=== PATIENT | female | born 1955 | race African-American/Black ===

== ENCOUNTER → 2016-08-14 | Outpatient (CLI) | payer OTHER ==
[~2016-08-14] MED LIST: ACETAMINOPHEN325 M1 PO; ACID CONTROL20 MG PO; ALLOPURINOL 10100 M1 PO; AMLODIPINE BESY10 MG PO; ANTACID325 MG PO; ANTIVERT25 MG PO; APAP500 PO; ASPIRIN325 PO; B-50 COMPLEX1 EACH PO; CARDIZEM CD180 MG PO; CELLCEPT 250 M250 M1 PO; CELLCEPT500 MG PO; CITRATE OF MAG296 ML PO; COLACE100 MG PO; COMBIVENT INH; FOLIC ACID1 MG PO; FUROSEMIDE 40 M40 M1 PO; LEVOXYL25 MCG; LISINOPRIL20 MG PO; LOPRESSOR 50 MG50 M1; METOPROLOL SUCC25 M1 PO; NAPROSYN500 MG PO; NEURONTIN 300300 M1 PO; PREDNISONE 1 MG1 M1 PO; PREDNISONE 10 M10 M1 PO; SIMBRINZA 1%-0.28 ML OP; TOPROL XL50 MG PO; TRAVATAN Z5 ML OP; VITAMIN D1000 UNI1 PO; XALATAN2.5 ML OPHTHALMIC; [UNRECOGNIZED DRUG - OTHER]
== END ==
LOC: RAD 16:29
DX: M47.896 Other spondylosis, lumbar region (principal); M79.89 Other specified soft tissue disorders

== ENCOUNTER → 2016-10-16 | Outpatient (CLI) | payer OTHER | LOC: MRI 10-15 09:27 | DX: M47.26 Other spondylosis with radiculopathy, lumbar region (principal); M48.06 Spinal stenosis, lumbar region ==

== ENCOUNTER 2016-12-02 20:57 | Emergency (ER) | payer OTHER ==
[~2016-12-02] VITALS: Ht 160 cm; Wt 158.8 kg
[2016-12-02] MEDS ORDERED: NORCO 5-325 TA1 EACH PO (22:44)
[2016-12-02] MEDS ORDERED: NAPROSYN500 MG PO (22:44)
== END 2016-12-02 23:26 | disposition home or self-care (01) ==
LOC: ER 20:57
DX: M54.42 Lumbago with sciatica, left side (principal); E66.01 Morbid (severe) obesity due to excess calories; I10 Essential (primary) hypertension; F17.210 Nicotine dependence, cigarettes, uncomplicated; Z87.09 Personal history of other diseases of the respiratory system; Z88.5 Allergy status to narcotic agent; Z91.018 Allergy to other foods; Z88.8 Allergy status to other drugs, medicaments and biological substances

== ENCOUNTER → 2017-01-02 | Outpatient (CLI) | payer OTHER ==
[~2017-01-02] MED LIST changes: +NORCO 5-325 TA1 EACH PO
== END ==
LOC: RAD 12:55
DX: M17.0 Bilateral primary osteoarthritis of knee (principal); M79.89 Other specified soft tissue disorders

== ENCOUNTER → 2017-03-04 | Outpatient (CLI) | payer OTHER | LOC: RAD 10:28 | DX: Z12.31 Encounter for screening mammogram for malignant neoplasm of breast (principal) ==

== ENCOUNTER 2017-04-24 17:08 | Inpatient (IN) | payer OTHER ==
[~2017-04-24] VITALS: Ht 160 cm; Wt 152.0 kg
--- NOTE | ~2017-04-24 | EKG ---
[place] [address] [facility] [place] [address] ELECTROCARDIOGRAM REPORT Name: MONOMEGANLUCIA BOLAÑOS Room #: [facility]..#: [id number] Admission: Attend Phys: Discharge: Date of : 59 Report #: [id number] THIS REPORT FOR: //name// [facility] ED Test Date: 2017-04-24 Test Time: 17:28:15 Pat Name: MEGAN VILLAREAL Department: Room: Gender: F Transitions Manager Rn: LORI : 1955 Requested By: Nayeli Saxena Order Number: [id number] MD: Ric Tomlin Measurements Intervals [place] Rate: 115 P: 67 MO: 144 QRS: 45 QRSD: 81 T: 64 QT: 334 QTc: 462 Interpretive Statements Sinus tachycardia Otherwise no significant abnormality Compared to ECG 12/24/2013 07:03:26 First degree AV block no longer present Electronically Signed On 04-24-2017 17:33:54 REGISTERED PHARMACY TECHNICIAN by Ric Tomlin [email or web address] <ELECTRONICALLY SIGNED> By: Ric Tomlin MD, [facility] 04/24/17 1733 1728 1728 Ric Tomlin MD, FAC /EPI
[2017-04-24 17:10] VITALS: BP 122/86
[2017-04-24 17:25] LABS: URINE BILIRUBIN NEGATIVE (Negative); URINE BLOOD 2+ (Negative); URINE CLARITY CLEAR; URINE COLOR YELLOW; URINE GLUCOSE-RANDOM* 3+ (Negative); URINE KETONES NEGATIVE (Negative); URINE LEUKOCYTES 1+ (Negative); URINE NITRITE POSITIVE (Negative); URINE PROTEIN (DIPSTICK) NEGATIVE (Negative); URINE SPECIFIC GRAVITY <= 1.005 (1.005-1.035); URINE UROBILINOGEN 0.2 E.U./dl (0.2-1.0)
[2017-04-24 17:40] LABS: CASTS None Seen /LPF (None Seen); SQUAMOUS 4-10 Moderate /LPF (0-3); URINE RBC 3-10 Few /HPF (0-2)
[2017-04-24 17:41] LABS: BACTERIA >30 Many /HPF (None Seen); CRYSTALS None Seen /LPF (None Seen)
[2017-04-24 17:54] LABS: BASOPHILS 0.5 % (0.0-2.0); HEMOGLOBIN 14.8 gm/dL (12.0-15.0); LYMPHOCYTES 15.4 % (24.0-44.0); MCHC 33.6 g/dL (28.0-37.0); MCV 98.2 fL (80.0-100.0); MONOCYTES 10.9 % (1.0-8.0); PLATELET COUNT 156 thou/uL (150-400); POLYS 72.2 % (36.0-66.0); RBC 4.48 mil/uL (4.20-5.00); RDW 15.1 % (10.5-14.5); WBC 8.4 thou/uL (4.0-11.0)
[2017-04-24 18:01] LABS: ANION GAP 11 mmol/L (7-16); BUN 13 mg/dL (7-18); CALCIUM 9.4 mg/dL (8.5-10.1); CHLORIDE 100 mmol/L (98-107); CO2 25 mmol/L (21-32); CREATININE 1.7 mg/dL (0.6-1.0); GLUCOSE 450 mg/dL (74-106); SODIUM 136 mmol/L (136-145)
[2017-04-24 18:11] LABS: ALBUMIN 3.4 g/dL (3.4-5.0); LIPASE 135 U/L (73-393); SGOT 40 U/L (15-37); SGPT 50 U/L (30-65); TOTAL BILIRUBIN 1.2 mg/dL (<0.1-1.0); TOTAL PROTEIN 7.1 g/dL (6.4-8.2); TROPONIN-I < 0.04 ng/mL (<0.06)
[2017-04-24] MEDS ORDERED: OXYBUTYNIN ER 55 M1 PO (19:33)
[2017-04-24] MEDS ORDERED: LISINOPRIL5 MG PO (19:33)
[2017-04-24] MEDS ORDERED: SYNTHROID50 MCG PO (19:34)
[2017-04-24] MEDS ORDERED: LASIX 40 MG TAB40 M2 PO (19:34)
[2017-04-24 21:07] VITALS: BP 159/81
[2017-04-24 21:40] VITALS: BP 134/88
[2017-04-25 04:28] VITALS: BP 141/96
[2017-04-25 06:04] LABS: ANION GAP 11 mmol/L (7-16); BUN 9 mg/dL (7-18); CALCIUM 8.4 mg/dL (8.5-10.1); CHLORIDE 106 mmol/L (98-107); CHOLESTEROL 182 mg/dL (<200); CO2 23 mmol/L (21-32); CREATININE 1.1 mg/dL (0.6-1.0); GLUCOSE 157 mg/dL (74-106); HDL CHOLESTEROL 54 mg/dL (>40); LDL CHOLESTEROL 91 mg/dL (<100); POTASSIUM 3.1 mmol/L (3.5-5.1); SODIUM 140 mmol/L (136-145); TC:HDL 3.4 Ratio (Not establshd); TRIGLYCERIDE 187 mg/dL (<150); VLDL 37 mg/dL (<40)
[2017-04-25 06:06] LABS: SERUM ASSESSMENT Clear
[2017-04-25 08:00] LABS: CALCIUM 8.3 mg/dL (8.5-10.1); CREATININE 1.2 mg/dL (0.6-1.0); MAGNESIUM 1.7 mg/dL (1.8-2.4); POTASSIUM 3.1 mmol/L (3.5-5.1)
[2017-04-25 08:53] VITALS: BP 133/75
[2017-04-25 15:59] VITALS: BP 145/80
[2017-04-25 20:41] VITALS: BP 114/96
[2017-04-26 05:23] VITALS: BP 127/73
[2017-04-26 05:41] LABS: ABSOLUTE NEUTROPHILS 4.8 thou/uL (1.4-8.2); BASOPHILS 0.8 % (0.0-2.0); EOSINOPHILS 1.5 % (0.0-3.0); LYMPHOCYTES 11.5 % (24.0-44.0); MCH 33.6 pg (26.0-34.0); MCHC 34.6 g/dL (28.0-37.0); MCV 97.2 fL (80.0-100.0); MONOCYTES 10.1 % (1.0-8.0); PLATELET COUNT 112 thou/uL (150-400); POLYS 76.1 % (36.0-66.0); RDW 14.3 % (10.5-14.5); WBC 6.2 thou/uL (4.0-11.0)
[2017-04-26 05:44] LABS: HEMOGLOBIN 11.8 gm/dL (12.0-15.0)
[2017-04-26 05:56] LABS: CALCIUM 7.9 mg/dL (8.5-10.1); CREATININE 1.1 mg/dL (0.6-1.0)
[2017-04-26 06:07] LABS: POTASSIUM 3.6 mmol/L (3.5-5.1)
[2017-04-26 08:00] VITALS: BP 143/81
[2017-04-26 16:00] VITALS: BP 133/55
[2017-04-26 19:18] VITALS: BP 137/71
[2017-04-27 04:03] VITALS: BP 149/85
[2017-04-27 06:32] LABS: ABSOLUTE NEUTROPHILS 3.6 thou/uL (1.4-8.2); BASOPHILS 0.5 % (0.0-2.0); EOSINOPHILS 2.8 % (0.0-3.0); HEMATOCRIT 34.2 % (37.0-47.0); HEMOGLOBIN 11.7 gm/dL (12.0-15.0); LYMPHOCYTES 17.1 % (24.0-44.0); MCH 33.5 pg (26.0-34.0); MCHC 34.2 g/dL (28.0-37.0); MCV 97.9 fL (80.0-100.0); MONOCYTES 10.1 % (1.0-8.0); PLATELET COUNT 114 thou/uL (150-400); POLYS 69.5 % (36.0-66.0); RBC 3.49 mil/uL (4.20-5.00); RDW 14.5 % (10.5-14.5); WBC 5.2 thou/uL (4.0-11.0)
[2017-04-27 06:47] LABS: POTASSIUM 3.5 mmol/L (3.5-5.1)
[2017-04-27 07:50] VITALS: BP 139/82
[2017-04-27] MEDS ORDERED: KEFLEX500 M1 PO (09:34)
[2017-04-27] MEDS ORDERED: METFORMIN HCL500 MG PO (09:36)
[2017-04-27 11:22] VITALS: BP 139/82
== END 2017-04-27 12:00 | disposition home or self-care (01) | DRG 689 ==
LOC: ER 17:08 → 4S 19:18 → EROBS 19:18 → 4S 21:24
PROVIDERS: Family Medicine; Nurse Practitioner Acute Care; Physician Assistant
DX: N39.0 Urinary tract infection, site not specified (principal); N17.0 Acute kidney failure with tubular necrosis; Z68.43 Body mass index [BMI] 50.0-59.9, adult; E03.9 Hypothyroidism, unspecified; H40.9 Unspecified glaucoma; E11.65 Type 2 diabetes mellitus with hyperglycemia; N18.3 Chronic kidney disease, stage 3 (moderate); E11.22 Type 2 diabetes mellitus with diabetic chronic kidney disease; E66.01 Morbid (severe) obesity due to excess calories; I12.9 Hypertensive chronic kidney disease with stage 1 through stage 4 chronic kidney disease, or unspecified chronic kidney disease; D86.9 Sarcoidosis, unspecified; H10.9 Unspecified conjunctivitis; E87.6 Hypokalemia; Z79.899 Other long term (current) drug therapy; Z88.8 Allergy status to other drugs, medicaments and biological substances; Z91.018 Allergy to other foods; Z88.6 Allergy status to analgesic agent; Z83.3 Family history of diabetes mellitus; Z81.8 Family history of other mental and behavioral disorders
CPT/HCPCS: 10195

== ENCOUNTER 2017-06-03 18:11 | Emergency (ER) | payer OTHER ==
[~2017-06-03] VITALS: Ht 160 cm; Wt 154.2 kg
[~2017-06-03 18:11] MED LIST changes: +KEFLEX500 M1 PO; +LASIX 40 MG TAB40 M2 PO; +LISINOPRIL5 MG PO; +METFORMIN HCL500 MG PO; +OXYBUTYNIN ER 55 M1 PO; +SYNTHROID50 MCG PO
[2017-06-03] MEDS ORDERED: NORCO 5-325 TA1 EACH PO (20:22)
[2017-06-03] MEDS ORDERED: NORFLEX100 MG PO (20:22)
[2017-06-03] MEDS ORDERED: SENNA-DOCUSATE1 EACH PO (20:22)
[2017-06-03 20:33] VITALS: BP 131/73
== END 2017-06-03 20:34 | disposition home or self-care (01) ==
LOC: ER 18:11
DX: S39.012A Strain of muscle, fascia and tendon of lower back, initial encounter (principal); I10 Essential (primary) hypertension; G47.30 Sleep apnea, unspecified; E03.9 Hypothyroidism, unspecified; Z88.8 Allergy status to other drugs, medicaments and biological substances; X58.XXXA Exposure to other specified factors, initial encounter; Y93.89 Activity, other specified; Y92.89 Other specified places as the place of occurrence of the external cause; Y99.8 Other external cause status

== ENCOUNTER 2017-09-01 11:55 | Inpatient (IN) | payer OTHER ==
[~2017-09-01] VITALS: Ht 160 cm; Wt 132.4 kg
--- NOTE | ~2017-09-01 | EKG ---
[address] [address] ELECTROCARDIOGRAM REPORT Name: MEGAN VILLAREAL MAMI [id number] Admission: 09/01/17 Attend Phys: Discharge: Date of : 59 Report #: [id number] THIS REPORT FOR: //name// [facility] ED Test Date: 2017-09-01 Test Time: 12:22:22 Pat Name: MEGAN VILLAREAL Department: Room: Gender: F Distribution Clerk: Marla AUSTIN : 1955 Requested By: Tad Valenzuela Order Number: [id number] MD: Harinder Santos Measurements Intervals [place] Rate: 107 P: 52 RI: 158 QRS: 26 QRSD: 84 T: 54 QT: 319 QTc: 426 Interpretive Statements Sinus tachycardia Baseline wander in lead(s) V4 Compared to ECG 04/24/2017 17:28:15 No significant changes Electronically Signed On 09-01-2017 13:17:09 CDT by Harinder Santos [email or web address] <ELECTRONICALLY SIGNED> By: Harinder Santos MD 09/01/17 1317 D: 06/1221 21 Harinder Santos MD /PAYAL
--- NOTE | ~2017-09-01 | HC ---
[facility] [place] [address] CONSULTATION Name: MEGAN VILLAREAL Room #: 456-P [facility] IN M.R.#: [id number] Admission: 09/01/17 Attend Phys: Karl Castro MD Discharge: Date of : 59 Report #: [id number] THIS REPORT FOR: //name// CC: Karl Tate DATE OF SERVICE: 09/01/2017 REASON FOR CONSULTATION: Acute kidney injury. REASON FOR PRESENTATION: Weakness. HISTORY OF PRESENT ILLNESS: This is a 61-year-old with past medical history of sarcoidosis who felt dizzy and weak this morning and had difficulty walking. She became short of breath. This has happened in the last couple of days. No associated fever or chills. No chest pain. No syncopal episodes. On presentation, she was found to have a creatinine of 1.7. She tells me that 5 years ago, she has been seeing Dr. Abner Herzog. She was diagnosed to have sarcoidosis. She was started on and steroids. She does not recall if she has ever had a kidney biopsy or not. She was taken off the steroids about a month ago. She is supposed to be taking Lasix. She is also known to have diabetes and hypertension. She is maintained on lisinopril, metformin. For unclear reasons to me, there is a mention that she is also maintained on CellCept. I do not have the details of her possible biopsy. ER labs revealed significant hypercalcemia. Magnesium was also low. PAST MEDICAL HISTORY: 1. Sarcoidosis. 2. Morbid obesity. 3. Chronic kidney disease. 4. Acute kidney injury. 5. Right arm cyst removal. 6. Glaucoma. 7. Hypothyroidism. 8. Diabetes mellitus. 9. Hypertension. 10. Sleep apnea. She does not utilize the CPAP. MEDICATIONS: 1. Metformin. 2. Cephalexin. 3. Lisinopril. 4. Lasix. 5. Diltiazem. 6. Aspirin. 7. CellCept. [facility] [address] [place] [address] CONSULTATION Name: MONOMEGAN RHINELANDER Room #: [address] [place] [address] [place] M.R.#: [id number] Admission: 09/01/17 Attend Phys: Karl Castro MD Discharge: Date of : 59 Report #: [id number] ALLERGIES: GABAPENTIN and TRAMADOL. SOCIAL HISTORY: She used to be in the education system. No drug or alcohol abuse. REVIEW OF SYSTEMS: GENERAL: No fever or chills. Significant weakness. CARDIOVASCULAR: No chest pain, but significant shortness of breath. PULMONARY: No cough or hemoptysis. GASTROINTESTINAL: As per the history of present illness. GENITOURINARY: As per the history of present illness. MUSCULOSKELETAL: Occasional arthralgia. SKIN: No rash or ulcerations. NEUROLOGICAL: No headache, but occasional dizziness. PHYSICAL EXAMINATION: VITAL SIGNS: Pulse is 99, blood pressure is 93/63, pulse rate is on 110 actually, respiratory rate 20. HEAD AND NECK: No jugular venous distention. HEENT: Dry mucous membrane. CHEST: Clear to auscultation bilaterally. CARDIOVASCULAR: Regular with no rub. ABDOMEN: Soft, nontender. LOWER EXTREMITIES: No edema. LABORATORY VALUES: Reviewed. Sodium is 130, potassium 4.7, creatinine 1.7, calcium 11.5. Magnesium was 0.9. ASSESSMENT, IMPRESSION, AND PLAN: 1. Acute kidney injury. 2. Hypercalcemia. 3. Hypomagnesemia. 4. Hypotension. 5. History of sarcoidosis. 6. Hyponatremia. 7. Chronic immune suppression. 8. We will initiate the acute kidney injury workup. 9. Replace electrolytes. 10. IV saline. 11. Hold blood pressure medications. 12. Treat hypercalcemia with the appropriate parameters. 13. Obtain her old records. 14. Expect her acute kidney injury to be all related [place] [address] CONSULTATION Name: MEGAN VILLAREAL MAMI Room #: 456-P ADM IN M.R.#: [id number] Admission: 09/01/17 Attend Phys: Karl Castro MD Discharge: Date of : 59 Report #: [id number] hypercalcemia causes; however, need to rule out other possibilities and I will initiate the appropriate investigation. <ELECTRONICALLY SIGNED> By: Solis Thompson MD 09/02/17 0634 1614 1736 Solis Thompson MD /arnaud
[~2017-09-01 11:55] MED LIST changes: +NORFLEX100 MG PO; +SENNA-DOCUSATE1 EACH PO
[2017-09-01 12:21] VITALS: BP 91/57; BP 93/63
[2017-09-01 12:34] LABS: BASOPHILS 0.5 % (0.0-2.0); EOSINOPHILS 3.7 % (0.0-3.0); HEMATOCRIT 37.7 % (37.0-47.0); HEMOGLOBIN 12.7 gm/dL (12.0-15.0); LYMPHOCYTES 17.3 % (24.0-44.0); MCH 31.4 pg (26.0-34.0); MCHC 33.6 g/dL (28.0-37.0); MCV 93.6 fL (80.0-100.0); MONOCYTES 11.7 % (1.0-8.0); PLATELET COUNT 219 thou/uL (150-400); POLYS 66.8 % (36.0-66.0); RBC 4.03 mil/uL (4.20-5.00); RDW 14.3 % (10.5-14.5); WBC 5.9 thou/uL (4.0-11.0)
[2017-09-01 12:37] LABS: URINE BILIRUBIN NEGATIVE (Negative); URINE BLOOD NEGATIVE (Negative); URINE CLARITY CLOUDY; URINE COLOR YELLOW; URINE GLUCOSE-RANDOM* NEGATIVE (Negative); URINE KETONES TRACE (Negative); URINE LEUKOCYTES-REFLEX NEGATIVE (Negative); URINE NITRITE-REFLEX NEGATIVE (Negative); URINE PROTEIN (DIPSTICK) NEGATIVE (Negative); URINE SPECIFIC GRAVITY 1.025 (1.005-1.035); URINE UROBILINOGEN 0.2 E.U./dl (0.2-1.0)
[2017-09-01 12:43] LABS: ANION GAP 11 mmol/L (7-16); BUN 28 mg/dL (7-18); CALCIUM 11.5 mg/dL (8.5-10.1); CHLORIDE 100 mmol/L (98-107); CO2 19 mmol/L (21-32); CREATININE 1.7 mg/dL (0.6-1.0); GLUCOSE 80 mg/dL (74-106); POTASSIUM 4.7 mmol/L (3.5-5.1); SODIUM 130 mmol/L (136-145)
[2017-09-01 12:52] LABS: ALBUMIN 3.4 g/dL (3.4-5.0); SGOT 41 U/L (15-37); SGPT 29 U/L (30-65); TOTAL BILIRUBIN 0.7 mg/dL (<0.1-1.0); TOTAL PROTEIN 7.3 g/dL (6.4-8.2); TROPONIN-I < 0.04 ng/mL (<0.06)
[2017-09-01 13:48] VITALS: BP 102/62
[2017-09-01 14:20] VITALS: BP 129/73
[2017-09-01] MEDS ORDERED: MAPAP500 MG PO (15:15)
[2017-09-01 16:10] VITALS: BP 116/71
[2017-09-01 16:29] LABS: CALCIUM 11.1 mg/dL (8.5-10.1); CREATININE 1.6 mg/dL (0.6-1.0); MAGNESIUM 1.2 mg/dL (1.8-2.4); POTASSIUM 5.4 mmol/L (3.5-5.1)
[2017-09-01 16:33] LABS: ALBUMIN 3.5 g/dL (3.4-5.0); TOTAL PROTEIN 6.9 g/dL (6.4-8.2)
[2017-09-01 19:44] VITALS: BP 113/70
[2017-09-01 20:29] LABS: CALCIUM 10.9 mg/dL (8.5-10.1); CREATININE 1.5 mg/dL (0.6-1.0); MAGNESIUM 1.5 mg/dL (1.8-2.4); POTASSIUM 4.7 mmol/L (3.5-5.1)
[2017-09-02 01:23] LABS: URINE BILIRUBIN NEGATIVE (Negative); URINE BLOOD NEGATIVE (Negative); URINE CLARITY CLEAR; URINE COLOR YELLOW; URINE GLUCOSE-RANDOM* NEGATIVE (Negative); URINE KETONES NEGATIVE (Negative); URINE LEUKOCYTES NEGATIVE (Negative); URINE NITRITE NEGATIVE (Negative); URINE PROTEIN (DIPSTICK) NEGATIVE (Negative); URINE SPECIFIC GRAVITY 1.015 (1.005-1.035); URINE UROBILINOGEN 0.2 E.U./dl (0.2-1.0)
[2017-09-02 01:28] LABS: URINE CREATININE-RANDOM* 22.9 mg/dL; URINE PROTEIN-RANDOM* < 6.0 mg/dL (<11.9); URINE SODIUM-RANDOM* 110 mmol/L
[2017-09-02 04:02] VITALS: BP 86/53
[2017-09-02 06:31] LABS: HEMATOCRIT 32.6 % (37.0-47.0); HEMOGLOBIN 11.1 gm/dL (12.0-15.0); MCH 31.8 pg (26.0-34.0); MCV 93.5 fL (80.0-100.0); RBC 3.49 mil/uL (4.20-5.00); RDW 14.5 % (10.5-14.5); WBC 4.3 thou/uL (4.0-11.0)
[2017-09-02 06:52] LABS: ALBUMIN 2.9 g/dL (3.4-5.0); CALCIUM 10.5 mg/dL (8.5-10.1); CALCIUM 11.1 mg/dL (8.5-10.1); CREATININE 1.5 mg/dL (0.6-1.0); PHOSPHORUS 3.1 mg/dL (2.5-4.9); POTASSIUM 4.4 mmol/L (3.5-5.1)
[2017-09-02 07:58] VITALS: BP 110/59
[2017-09-02 16:27] VITALS: BP 98/60
[2017-09-02 19:40] VITALS: BP 103/53
[2017-09-03 03:49] VITALS: BP 103/55
[2017-09-03 05:38] LABS: HEMATOCRIT 32.2 % (37.0-47.0); HEMOGLOBIN 10.8 gm/dL (12.0-15.0); MCH 31.5 pg (26.0-34.0); MCHC 33.6 g/dL (28.0-37.0); MCV 93.8 fL (80.0-100.0); RBC 3.43 mil/uL (4.20-5.00); RDW 14.2 % (10.5-14.5); WBC 3.3 thou/uL (4.0-11.0)
[2017-09-03 06:04] LABS: ALBUMIN 2.8 g/dL (3.4-5.0); CALCIUM 10.4 mg/dL (8.5-10.1); CREATININE 1.2 mg/dL (0.6-1.0); PHOSPHORUS 2.6 mg/dL (2.5-4.9); POTASSIUM 4.1 mmol/L (3.5-5.1)
[2017-09-03 09:34] VITALS: BP 106/65
[2017-09-03 15:53] VITALS: BP 157/85
[2017-09-03 19:48] VITALS: BP 127/79
[2017-09-04 04:45] VITALS: BP 91/58
[2017-09-04 05:20] LABS: HEMATOCRIT 33.4 % (37.0-47.0); HEMOGLOBIN 11.1 gm/dL (12.0-15.0); MCH 31.3 pg (26.0-34.0); MCHC 33.3 g/dL (28.0-37.0); MCV 94.1 fL (80.0-100.0); RBC 3.55 mil/uL (4.20-5.00); RDW 14.4 % (10.5-14.5); WBC 3.6 thou/uL (4.0-11.0)
[2017-09-04 05:35] LABS: CALCIUM 10.9 mg/dL (8.5-10.1); CREATININE 1.1 mg/dL (0.6-1.0); POTASSIUM 4.1 mmol/L (3.5-5.1)
[2017-09-04 09:19] VITALS: BP 107/69
[2017-09-04 16:42] VITALS: BP 107/69
== END 2017-09-04 17:30 | disposition home or self-care (01) | DRG 682 ==
LOC: ER 11:55 → 4W 13:16 → EROBS 13:16 → ER 14:13 → 4W 14:38 → ENTRNSPT 09-04 16:42 → 4W 09-04 17:30
PROVIDERS: Emergency Medicine; Hospitalist; Internal Medicine; Internal Medicine Nephrology
DX: N17.9 Acute kidney failure, unspecified (principal); E43 Unspecified severe protein-calorie malnutrition; E87.1 Hypo-osmolality and hyponatremia; Z68.43 Body mass index [BMI] 50.0-59.9, adult; E03.9 Hypothyroidism, unspecified; H40.9 Unspecified glaucoma; E11.39 Type 2 diabetes mellitus with other diabetic ophthalmic complication; E66.01 Morbid (severe) obesity due to excess calories; N18.9 Chronic kidney disease, unspecified; I12.9 Hypertensive chronic kidney disease with stage 1 through stage 4 chronic kidney disease, or unspecified chronic kidney disease; E11.22 Type 2 diabetes mellitus with diabetic chronic kidney disease; E83.52 Hypercalcemia; E83.42 Hypomagnesemia; I95.9 Hypotension, unspecified; D86.9 Sarcoidosis, unspecified; G89.29 Other chronic pain; M54.9 Dorsalgia, unspecified; E87.5 Hyperkalemia; K75.9 Inflammatory liver disease, unspecified; Z99.81 Dependence on supplemental oxygen; Z98.42 Cataract extraction status, left eye; Z79.899 Other long term (current) drug therapy; Z79.82 Long term (current) use of aspirin; Z88.8 Allergy status to other drugs, medicaments and biological substances; Z91.018 Allergy to other foods; Z81.8 Family history of other mental and behavioral disorders; Z83.3 Family history of diabetes mellitus; Z84.89 Family history of other specified conditions
CPT/HCPCS: 10045

== ENCOUNTER → 2018-03-12 | Outpatient (CLI) | payer OTHER ==
[~2018-03-12] MED LIST changes: +MAPAP500 MG PO
== END ==
LOC: RAD 12:40
DX: Z12.31 Encounter for screening mammogram for malignant neoplasm of breast (principal)

== ENCOUNTER → 2018-03-20 | Outpatient (CLI) | payer OTHER | LOC: NUC 07:29 | DX: M81.0 Age-related osteoporosis without current pathological fracture (principal); M85.89 Other specified disorders of bone density and structure, multiple sites; Z78.0 Asymptomatic menopausal state ==

== ENCOUNTER → 2019-06-09 | Outpatient (CLI) | payer BC, OTHER | LOC: RAD 12:59 | DX: Z12.31 Encounter for screening mammogram for malignant neoplasm of breast (principal); N64.89 Other specified disorders of breast ==

== ENCOUNTER 2020-10-03 18:16 | Emergency (ER) | payer BC, OTHER ==
[~2020-10-03] VITALS: Ht 160 cm; Wt 149.7 kg
[2020-10-03 20:14] LABS: HEMATOCRIT 36.6 % (37.0-47.0); HEMOGLOBIN 12.6 gm/dL (12.0-15.0); MCH 31.6 pg (26.0-34.0); MCHC 34.3 g/dL (28.0-37.0); MCV 92.2 fL (80.0-100.0); PLATELET COUNT 117 thou/uL (150-400); RBC 3.97 mil/uL (4.20-5.00); RDW 13.5 % (10.5-14.5); WBC 2.9 thou/uL (4.0-11.0)
[2020-10-03 20:29] LABS: CALCIUM 9.2 mg/dL (8.5-10.1); CREATININE 1.7 mg/dL (0.6-1.0); POTASSIUM 4.2 mmol/L (3.5-5.1)
[2020-10-03 20:38] LABS: ALBUMIN 3.5 g/dL (3.4-5.0); TOTAL BILIRUBIN 0.3 mg/dL (0.2-1.0); TOTAL PROTEIN 7.2 g/dL (6.4-8.2)
[2020-10-03 20:49] LABS: ABSOLUTE NEUTROPHILS 1.1 thou/uL (1.4-8.2)
[2020-10-03 20:50] LABS: ANISOCYTOSIS 1+; PLATELET ESTIMATE DECREASED1; POIKILOCYTOSIS 1+
[2020-10-03] MEDS ORDERED: DOXYCYCLINE 10100 MG PO (22:09)
[2020-10-03 22:45] VITALS: BP 138/70
[2020-10-03] MEDS ORDERED: ZOFRAN ODT4 MG PO (23:09)
== END 2020-10-04 01:30 | disposition home or self-care (01) ==
LOC: ER 18:16
PROVIDERS: Physician Assistant
DX: U07.1 COVID-19 (principal); D86.9 Sarcoidosis, unspecified; E03.9 Hypothyroidism, unspecified; E11.22 Type 2 diabetes mellitus with diabetic chronic kidney disease; I12.9 Hypertensive chronic kidney disease with stage 1 through stage 4 chronic kidney disease, or unspecified chronic kidney disease; N18.9 Chronic kidney disease, unspecified; D89.3 Immune reconstitution syndrome; Z79.84 Long term (current) use of oral hypoglycemic drugs; Z79.82 Long term (current) use of aspirin; Z79.899 Other long term (current) drug therapy; Z88.8 Allergy status to other drugs, medicaments and biological substances; Z91.018 Allergy to other foods